=== PATIENT | male | born 1955 | race African-American/Black ===

== ENCOUNTER 2018-02-10 00:28 | Inpatient (IN) | payer OTHER ==
[~2018-02-10] VITALS: Ht 182.9 cm; Wt 72.6 kg
[2018-02-10] MEDS ORDERED: ALBUTEROL (0.083%) 2.5MG/3ML NEB HHN STA (01:16)
[2018-02-10] MEDS ORDERED: METHYLPREDNISOLONE SOD SUCC 125 MG/2 ML VIAL IV STA (01:16)
[2018-02-10] MEDS ORDERED: IPRATROPIUM BROMIDE (0.02%) 0.5MG/2.5ML NEB HHN STA (01:16)
[2018-02-10] MEDS ORDERED: ASPIRIN 81MG TABLET PO ONE (01:30)
[2018-02-10 01:41] LABS: BASOPHILS % 0.4 % (0.0-2.0); EOSINOPHILS % 4.2 % (0.0-5.0); HEMATOCRIT. 47.6 % (42.0-52.0); HEMOGLOBIN. 16.3 g/dL (14.0-18.0); LYMPHOCYTES % 16.6 % (20.0-50.0); MEAN CORPUSCULAR VOLUME 90.5 fL (80.0-94.0); MONOCYTES % 7.6 % (2.0-8.0); NEUTROPHILS % 71.2 % (40.0-76.0); PLATELET 195 x1000/uL (130-400); RED BLOOD CELL COUNT 5.26 mill/uL (4.7-6.1); RED CELL DISTRIBUTION WIDTH 12.5 % (11.6-14.6)
[2018-02-10 01:47] LABS: CHLORIDE 106 mEq/L (98-107)
[2018-02-10 01:52] LABS: INR 1.1; PARTIAL THROMBOPLASTIN TIME 31.6 sec (23.4-31.0); PROTHROMBIN TIME 10.7 sec (9.1-11.1)
[2018-02-10] MEDS ORDERED: CLONIDINE 0.1MG TABLET PO PRN (03:45)
[2018-02-10] MEDS ORDERED: IPRATROPIUM/ALBUTEROL 0.5-3(2.5)MG/3ML NEB INH PRN (03:45)
[2018-02-10] MEDS: ACETAMINOPHEN 325MG TABLET PO PRN ×2 (05:15→17:47)
[2018-02-10] MEDS: ONDANSETRON HCL 4MG/2ML INJ IV PRN (05:17)
[2018-02-10 08:00] VITALS: BP 148/97
[2018-02-10 09:00] VITALS: BP 148/97
[2018-02-10] MEDS ORDERED: LEVOFLOXACIN 500MG PREMIX 100 ML IV SCH (09:00)
[2018-02-10] MEDS: ENOXAPARIN 40MG/0.4ML SYR SUBCUT SCH (10:10)
[2018-02-10] MEDS: METHYLPREDNISOLONE SOD SUCC 40 MG/ML VIAL IV SCH ×2 (10:11→15:00)
[2018-02-10 12:00] VITALS: BP 105/73
[2018-02-10] MEDS ORDERED: IPRATROPIUM/ALBUTEROL 0.5-3(2.5)MG/3ML NEB HHN SCH (12:00)
[2018-02-10] MEDS ORDERED: MAGNESIUM/ALUMINUM HYDROXIDE/SIMETHICONE 30ML UDC PO PRN (13:00)
[2018-02-10] MEDS: SODIUM CHLORIDE 0.9% INJ 3ML FLUSH IVF SCH (13:21)
[2018-02-10] MEDS ORDERED: OXYB5TAB11 MT (15:12)
[2018-02-10] MEDS: OXYBUTYNIN CHLORIDE 5MG TABLET PO SCH (15:30)
[2018-02-10 16:00] VITALS: BP 133/84
[2018-02-10] MEDS: FAMOTIDINE 20MG TABLET PO SCH (16:19)
[2018-02-10 20:00] VITALS: BP 143/93
[2018-02-11] VITALS: BP 136/78
[2018-02-11] MEDS: ONDANSETRON HCL 4MG/2ML INJ IV PRN (03:03)
[2018-02-11 04:00] VITALS: BP 132/75
[2018-02-11 08:00] VITALS: BP 152/98
[2018-02-11] MEDS: OXYBUTYNIN CHLORIDE 5MG TABLET PO SCH (08:19)
[2018-02-11] MEDS: FAMOTIDINE 20MG TABLET PO SCH (08:21)
[2018-02-11] MEDS: ENOXAPARIN 40MG/0.4ML SYR SUBCUT SCH (08:22)
[2018-02-11] MEDS: SODIUM CHLORIDE 0.9% INJ 3ML FLUSH IVF SCH ×2 (08:22→15:49)
[2018-02-11 12:00] VITALS: BP 144/88
[2018-02-11 16:00] VITALS: BP 138/82
[2018-02-11 17:17] VITALS: BP 138/82
== END 2018-02-11 17:55 | disposition home or self-care (01) | DRG 203 ==
LOC: ER 00:28 → 6EST 02:38 → EDBEDREQSVC 02:40 → EDBEDREQ 02:40 → EDBEDREQTM 02:40 → ENRESERV 06:30
PROVIDERS: ADMIT Internal Medicine; ATTEND Internal Medicine
DX: J20.9 Acute bronchitis, unspecified (principal); K42.9 Umbilical hernia without obstruction or gangrene; K29.70 Gastritis, unspecified, without bleeding; N32.81 Overactive bladder; Z85.46 Personal history of malignant neoplasm of prostate; Z92.3 Personal history of irradiation; Z88.0 Allergy status to penicillin
CPT/HCPCS: 36415; 71045; 74176; 83880; 84484; 93005; 94640; 96374; 99285; J1650; J1956; J2405; J2920; J2930; J7050; J7611

== ENCOUNTER 2018-03-21 04:14 | Inpatient (IN) | payer OTHER ==
[~2018-03-21] VITALS: Ht 172.7 cm; Wt 79.9 kg
[~2018-03-21 04:14] MED LIST: OXYB5TAB11 MT
[2018-03-21 05:46] LABS: BASOPHILS % 0.3 % (0.0-2.0); EOSINOPHILS % 2.3 % (0.0-5.0); HEMATOCRIT. 50.2 % (42.0-52.0); HEMOGLOBIN. 16.7 g/dL (14.0-18.0); LYMPHOCYTES % 14.1 % (20.0-50.0); MEAN CORPUSCULAR HEMOGLOBIN 30.7 pg (28.0-32.0); MEAN CORPUSCULAR VOLUME 92.1 fL (80.0-94.0); MEAN PLATELET VOLUME 8.1 fl (7.4-10.4); MONOCYTES % 5.6 % (2.0-8.0); NEUTROPHILS % 77.7 % (40.0-76.0); PLATELET 228 x1000/uL (130-400); RED BLOOD CELL COUNT 5.45 mill/uL (4.7-6.1); RED CELL DISTRIBUTION WIDTH 13.2 % (11.6-14.6)
[2018-03-21 05:47] LABS: CHLORIDE 107 mEq/L (98-107)
[2018-03-21 05:50] LABS: INR 1.1; PARTIAL THROMBOPLASTIN TIME 32.5 sec (23.4-31.0); PROTHROMBIN TIME 10.8 sec (9.1-11.1)
[2018-03-21 06:24] LABS: CLARITY URINE CLEAR (CLEAR); COLOR URINE YELLOW (YELLOW); KETONES URINE 1+ (NEGATIVE); LEUKOCYTE ESTERASE URINE NEGATIVE (NEGATIVE); NITRITE URINE NEGATIVE (NEGATIVE); OCCULT BLOOD URINE TRACE (NEGATIVE); PH URINE 5.5 (4.5-8.0); PROTEIN URINE NEGATIVE (NEGATIVE); SPECIFIC GRAVITY URINE 1.013 (1.005-1.030); UROBILINOGEN URINE 0.2 E.U./dL (0.2-1.0)
[2018-03-21] MEDS ORDERED: SODIUM CHLORIDE 0.9% 1000ML BAG (SEPSIS BOLUS) IV ONE (07:00)
[2018-03-21] MEDS ORDERED: LEVOFLOXACIN 750MG PREMIX 150 ML IV ONE (07:00)
[2018-03-21 09:00] VITALS: BP 144/91
[2018-03-21] MEDS ORDERED: AZITHROMYCIN 500 MG TABLET PO SCH (09:45)
[2018-03-21] MEDS: IPRATROPIUM/ALBUTEROL 0.5-3(2.5)MG/3ML NEB HHN PRN ×2 (11:58→20:46)
[2018-03-21 12:21] VITALS: BP 144/88
[2018-03-21] MEDS: ONDANSETRON HCL 4MG/2ML INJ IV PRN (14:22)
[2018-03-21 14:28] LABS: CANNABINOID URINE SCREEN PRESUMTIVE POSITIVE (NEGATIVE); PHENCYCLIDINE URINE SCREEN NEGATIVE (NEGATIVE)
[2018-03-21 14:29] LABS: *AMPHETAMINES SCREEN URINE NEGATIVE (NEGATIVE); *BARBITURATES SCREEN URINE NEGATIVE (NEGATIVE); *BENZODIAZEPINES SCREEN URINE NEGATIVE (NEGATIVE); *COCAINE SCREEN URINE NEGATIVE (NEGATIVE); METHADONE URINE SCREEN NEGATIVE (NEGATIVE); OPIATES URINE SCREEN PRESUMTIVE POSITIVE (NEGATIVE)
[2018-03-21 16:00] VITALS: BP 154/91
[2018-03-21 17:30] LABS: HEMOGLOBIN 15.3 g/dL (14.0-18.0)
[2018-03-21 17:57] LABS: CREATINE KINASE 106 IU/L (39-308)
[2018-03-21] MEDS: PANTOPRAZOLE SODIUM 40 MG/VIAL IV SCH (17:57)
[2018-03-21 17:58] LABS: CREATINE KINASE MB FRACTION 1.8 ng/mL (0.5-3.6)
[2018-03-21] MEDS: PHENYLEPHRINE/SHK LV/MO/PET,WH RECTAL OINT 28GM PR SCH (18:00)
[2018-03-21 20:05] VITALS: BP 138/91
[2018-03-21] MEDS: ACETAMINOPHEN 325MG TABLET PO PRN (22:33)
[2018-03-22] VITALS: BP 149/94
[2018-03-22] MEDS: PHENYLEPHRINE/SHK LV/MO/PET,WH RECTAL OINT 28GM PR SCH ×2 (06:00)
[2018-03-22 06:53] LABS: BASOPHILS % 0.4 % (0.0-2.0); HEMATOCRIT. 45.2 % (42.0-52.0); HEMOGLOBIN. 15.4 g/dL (14.0-18.0); LYMPHOCYTES % 13.9 % (20.0-50.0); MEAN CORPUSCULAR HEMOGLOBIN 31.1 pg (28.0-32.0); MEAN CORPUSCULAR VOLUME 91.1 fL (80.0-94.0); MEAN PLATELET VOLUME 7.9 fl (7.4-10.4); MONOCYTES % 11.9 % (2.0-8.0); NEUTROPHILS % 68.8 % (40.0-76.0); PLATELET 198 x1000/uL (130-400); RED BLOOD CELL COUNT 4.95 mill/uL (4.7-6.1); RED CELL DISTRIBUTION WIDTH 13.2 % (11.6-14.6)
[2018-03-22 08:00] VITALS: BP 147/95
[2018-03-22 08:20] LABS: CHLORIDE 107 mEq/L (98-107)
[2018-03-22] MEDS: IPRATROPIUM/ALBUTEROL 0.5-3(2.5)MG/3ML NEB HHN PRN (08:25)
[2018-03-22 08:28] LABS: CREATINE KINASE 96 IU/L (39-308)
[2018-03-22 08:30] LABS: CREATINE KINASE MB FRACTION 1.8 ng/mL (0.5-3.6)
[2018-03-22] MEDS: AZITHROMYCIN 250 MG TABLET PO SCH (09:07)
[2018-03-22] MEDS: PANTOPRAZOLE SODIUM 40 MG/VIAL IV SCH ×2 (09:07→17:09)
[2018-03-22] MEDS: ACETAMINOPHEN 325MG TABLET PO PRN (11:17)
[2018-03-22 12:00] VITALS: BP 132/79
[2018-03-22] MEDS ORDERED: REGADENOSON 0.4 MG/5 ML IV NR (15:30)
[2018-03-22 16:00] VITALS: BP 126/75
[2018-03-22 20:00] VITALS: BP 121/76
[2018-03-23] VITALS: BP 123/72
[2018-03-23 04:00] VITALS: BP 130/76
[2018-03-23] MEDS: IPRATROPIUM/ALBUTEROL 0.5-3(2.5)MG/3ML NEB HHN PRN (05:09)
[2018-03-23 08:04] VITALS: BP 144/96
[2018-03-23] MEDS ORDERED: REGADENOSON 0.4 MG/5 ML IV ONE (09:11)
[2018-03-23] MEDS: PANTOPRAZOLE SODIUM 40 MG/VIAL IV SCH (11:04)
[2018-03-23] MEDS: ONDANSETRON HCL 4MG/2ML INJ IV PRN (11:04)
[2018-03-23] MEDS: AZITHROMYCIN 250 MG TABLET PO SCH (11:05)
[2018-03-23] MEDS: PHENYLEPHRINE/SHK LV/MO/PET,WH RECTAL OINT 28GM PR SCH (11:06)
[2018-03-23 12:16] VITALS: BP 126/79
[2018-03-23] MEDS ORDERED: PANT40TA4 MT (12:25)
[2018-03-23] MEDS ORDERED: AZIT250T12 PO (12:25)
[2018-03-23 13:31] VITALS: BP 126/79
[2018-03-23 16:03] VITALS: BP 140/85
== END 2018-03-23 16:21 | disposition home or self-care (01) | DRG 202 ==
LOC: ER 04:33 → 6WST 06:59 → EDBEDREQSVC 07:02 → EDBEDREQTM 07:02 → EDBEDREQ 07:02 → ENRESERV 07:51
PROVIDERS: ADMIT Internal Medicine; ATTEND Internal Medicine
DX: J40 Bronchitis, not specified as acute or chronic (principal); E87.2 Acidosis; K62.5 Hemorrhage of anus and rectum; M94.0 Chondrocostal junction syndrome [Tietze]; I10 Essential (primary) hypertension; F12.90 Cannabis use, unspecified, uncomplicated; K64.9 Unspecified hemorrhoids; K29.70 Gastritis, unspecified, without bleeding; K21.9 Gastro-esophageal reflux disease without esophagitis; G89.29 Other chronic pain; H04.123 Dry eye syndrome of bilateral lacrimal glands; R13.10 Dysphagia, unspecified; Z87.891 Personal history of nicotine dependence; Z88.0 Allergy status to penicillin; Z85.46 Personal history of malignant neoplasm of prostate; Z92.3 Personal history of irradiation; Z79.899 Other long term (current) drug therapy
CPT/HCPCS: 36415; 71045; 78452; 80048; 80305; 82550; 82553; 83605; 84145; 84484; 85014; 85018; 87804; 92610; 93005; 93017; 93306; 94640; 96374; 99285; A9500; C9113; J1956; J2405; J2785; J7620

== ENCOUNTER 2018-04-03 05:36 | Inpatient (IN) | payer OTHER ==
[~2018-04-03] VITALS: Ht 182.9 cm; Wt 73.9 kg
[~2018-04-03 05:36] MED LIST changes: +AZIT250T12 PO; -OXYB5TAB11 MT; +PANT40TA4 MT
[2018-04-03 06:52] LABS: BASOPHILS % 0.5 % (0.0-2.0); EOSINOPHILS % 6.2 % (0.0-5.0); HEMATOCRIT. 44.1 % (42.0-52.0); HEMOGLOBIN. 14.8 g/dL (14.0-18.0); LYMPHOCYTES % 25.3 % (20.0-50.0); MEAN CORPUSCULAR HEMOGLOBIN 30.9 pg (28.0-32.0); MEAN PLATELET VOLUME 8.2 fl (7.4-10.4); MONOCYTES % 5.5 % (2.0-8.0); NEUTROPHILS % 62.5 % (40.0-76.0); PLATELET 243 x1000/uL (130-400); RED CELL DISTRIBUTION WIDTH 12.8 % (11.6-14.6)
[2018-04-03 06:59] LABS: CHLORIDE 110 mEq/L (98-107)
[2018-04-03] MEDS ORDERED: ONDANSETRON HCL 4MG/2ML INJ IV PRN ×2 (09:45→15:15)
[2018-04-03] MEDS ORDERED: TRAMADOL 50MG TABLET PO PRN (09:45)
[2018-04-03] MEDS ORDERED: OMEPRAZOLE 20MG CAPSULE EXTENDED RELEASE PO SCH (15:15)
[2018-04-03] MEDS ORDERED: MAGNESIUM/ALUMINUM HYDROXIDE/SIMETHICONE 30ML UDC PO PRN (15:15)
[2018-04-03] MEDS ORDERED: ACETAMINOPHEN 325MG TABLET PO PRN (15:15)
[2018-04-03] MEDS ORDERED: DOCUSATE SODIUM 100MG CAPSULE PO PRN (15:15)
[2018-04-03 15:20] VITALS: BP 152/91
[2018-04-03 15:33] VITALS: BP 152/91
[2018-04-03] MEDS: OMEPRAZOLE 20MG CAPSULE EXTENDED RELEASE PO SCH (15:56)
[2018-04-03] MEDS ORDERED: INFLUENZA VIRUS VACCINE(AFLURIA) 0.5ML SYR IM ONE (16:00)
[2018-04-03] MEDS ORDERED: CLONIDINE 0.1MG TABLET PO PRN (18:15)
[2018-04-03] MEDS ORDERED: POTASSIUM CHLORIDE 20MEQ TABLET SR PO NR (18:15)
[2018-04-03] MEDS: SODIUM CHLORIDE 0.9% 1,000 ML IV SCH (18:35)
[2018-04-03 20:00] VITALS: BP 152/89
[2018-04-03] MEDS: GUAIFENESIN 600MG ER TABLET PO SCH ×2 (21:00→21:06)
[2018-04-03] MEDS: IPRATROPIUM/ALBUTEROL 0.5-3(2.5)MG/3ML NEB INH PRN (21:40)
[2018-04-04] VITALS: BP 159/98
[2018-04-04 04:00] VITALS: BP 148/93
[2018-04-04] MEDS: OMEPRAZOLE 20MG CAPSULE EXTENDED RELEASE PO SCH (05:42)
[2018-04-04] MEDS: SODIUM CHLORIDE 0.9% 1,000 ML IV SCH (05:43)
[2018-04-04 07:05] LABS: BASOPHILS % 0.7 % (0.0-2.0); CHLORIDE 108 mEq/L (98-107); HEMATOCRIT. 43.4 % (42.0-52.0); HEMOGLOBIN. 14.5 g/dL (14.0-18.0); LYMPHOCYTES % 19.1 % (20.0-50.0); MEAN CORPUSCULAR HEMOGLOBIN 30.6 pg (28.0-32.0); MEAN CORPUSCULAR VOLUME 91.6 fL (80.0-94.0); MEAN PLATELET VOLUME 7.7 fl (7.4-10.4); NEUTROPHILS % 63.2 % (40.0-76.0); PLATELET 232 x1000/uL (130-400); RED BLOOD CELL COUNT 4.74 mill/uL (4.7-6.1); RED CELL DISTRIBUTION WIDTH 13.2 % (11.6-14.6)
[2018-04-04 07:11] LABS: PHOSPHORUS 2.6 mg/dL (2.5-4.9)
[2018-04-04 07:12] LABS: HDL CHOLESTEROL 42 mg/dL (40-59); LDL CHOLESTEROL 89 mg/dL (5-100)
[2018-04-04 08:00] VITALS: BP 152/98
[2018-04-04] MEDS: GUAIFENESIN 600MG ER TABLET PO SCH (08:39)
[2018-04-04] MEDS ORDERED: ASPIRIN 81MG EC TABLET PO SCH (09:00)
[2018-04-04] MEDS: IPRATROPIUM/ALBUTEROL 0.5-3(2.5)MG/3ML NEB INH PRN (10:00)
[2018-04-04 11:35] VITALS: BP 152/95
[2018-04-04 12:08] VITALS: BP 152/95
== END 2018-04-04 15:13 | disposition home or self-care (01) | DRG 313 ==
LOC: ER 05:36 → CANBEDREQ 10:07 → 8WST 14:03 → ENRESERV 14:20 → 8WST 22:33
PROVIDERS: ADMIT Family Medicine Adult Medicine; ATTEND Family Medicine Adult Medicine
DX: R07.89 Other chest pain (principal); I50.30 Unspecified diastolic (congestive) heart failure; I13.0 Hypertensive heart and chronic kidney disease with heart failure and stage 1 through stage 4 chronic kidney disease, or unspecified chronic kidney disease; K21.9 Gastro-esophageal reflux disease without esophagitis; E87.6 Hypokalemia; K22.2 Esophageal obstruction; N18.9 Chronic kidney disease, unspecified; Z85.46 Personal history of malignant neoplasm of prostate; Z88.0 Allergy status to penicillin; Z88.9 Allergy status to unspecified drugs, medicaments and biological substances
CPT/HCPCS: 36415; 71045; 80048; 80061; 83735; 83880; 84100; 84484; 90686; 93005; 94640; 96372; 99285; J2405; J7030; J7620